=== PATIENT | male | born 1990 | race African-American/Black ===

== ENCOUNTER 2018-02-05 21:34 | Emergency (ER) | payer SELFPAY ==
[~2018-02-05] VITALS: Ht 180.3 cm; Wt 98.0 kg
[2018-02-05 21:56] VITALS: BP 118/70; PULSE 100; RESP 16; TEMP 98.4; O2SAT 98
== END 2018-02-05 23:32 | disposition left against medical advice (07) ==
LOC: NED 21:34
DX: Z53.21 Procedure and treatment not carried out due to patient leaving prior to being seen by health care provider (principal)
CPT/HCPCS: 99281

== ENCOUNTER 2018-03-11 20:44 | Emergency (ER) | payer SELFPAY ==
[~2018-03-11] VITALS: Ht 180.3 cm; Wt 100.0 kg
[2018-03-11 21:09] VITALS: BP 142/87; PULSE 86; RESP 18; TEMP 99; O2SAT 99
--- NOTE | 2018-03-11 21:59 | PD ---
HPI Chief Complaint: Abdominal Pain Time Seen by Provider: 21:58 Travel History International Travel<30 days: No Contact w/Intl Traveler<30days: No Traveled to known affect area: No History of Present Illness HPI Patient comes in complaining of diffuse crampy abdominal pain, rates it a 5 out of 10, resolves after diarrhea, also some associated nausea but without much vomiting. Patient denies any aggravating or alleviating factors. Patient denies any associated factors such as fever, rash, chest pain, headache, neck pain, flank pain. Patient also denies any dysuria hematuria or urgency. Last normal meal was a burger No known drug allergy Past medical history significant only for left hip pin placement, occasional alcohol and tobacco use PFSH Past Medical History Medical History: Denies Significant Hx Diminished Hearing: No Tetanus Vaccination: Unknown Influenza Vaccination: No Social History Alcohol Use: Yes (occasionally) Tobacco Use: Yes Substance Use: No Allergies-Medications (Allergen,Severity, Reaction): Coded Allergies: No Known Allergies (Unverified , 03/11/18) Reported Meds & Prescriptions Reported Meds & Active Scripts Active No Active Prescriptions or Reported Medications Review of Systems General / Constitutional: No: Fever Eyes: No: Visual changes HENT: No: Headaches Cardiovascular: No: Chest Pain or Discomfort Respiratory: No: Shortness of Breath Gastrointestinal: Positive: Abdominal Pain Genitourinary: No: Dysuria Musculoskeletal: No: Pain Skin: No Rash Neurologic: No: Weakness Psychiatric: No: Depression Endocrine: No: Polydipsia Hematologic/Lymphatic: No: Easy Bruising Physical Exam Narrative GENERAL: SKIN: Warm and dry. HEAD: Atraumatic. Normocephalic. EYES: Pupils equal and round. No scleral icterus. No injection or drainage. ENT: No nasal bleeding or discharge. Mucous membranes pink and moist. NECK: Trachea midline. No JVD. CARDIOVASCULAR: Regular rate and rhythm. RESPIRATORY: No accessory muscle use. Clear to auscultation. Breath sounds equal bilaterally. GASTROINTESTINAL: Abdomen soft, non-tender, nondistended. MUSCULOSKELETAL: Extremities without clubbing, cyanosis, or edema. No obvious deformities. NEUROLOGICAL: Awake and alert. No obvious cranial nerve deficits. Motor grossly within normal limits. Five out of 5 muscle strength in the arms and legs. Normal speech. PSYCHIATRIC: Appropriate mood and affect; insight and judgment normal. Data Data Last Documented VS Orders Orders NPO (03/11/18 22:06) Sodium Chloride 0.9% Flush (Ns Flush) (03/11/18 22:15) Ed Discharge Order (03/11/18 22:16) [facility] Medical Decision Making Medical Screen Exam Complete: Yes Emergency Medical Condition: Yes Medical Record Reviewed: Yes Differential Diagnosis Gastroenteritis versus small bowel obstruction versus perforation Narrative Course Patient was very evasive in his history and physical. And once he found out that he required to get some blood work for evaluation patient decided not to stay, he signed out AMA. AMA: The risks of leaving against medical advice without further evaluation treatment were discussed with the patient. These risks include cardiac dysfunction, cardiac dysrhythmia, possible heart attack, possible stroke or . The patient indicated understanding of these risks and appeared to have the capacity to make this decision. Diagnosis Primary Impression: ama Patient Instructions: Against Medical Advice (ED), General Instructions Scripts No Active Prescriptions or Reported Meds Disposition: 07 AGAINST MEDICAL ADVICE Condition: Ron Hough MD March 11, 2018 21:59
[2018-03-11] MEDS ORDERED: SODIUM CHLORIDE 0.9% FLUSH 10 ML FLUSH IV FLUSH PRN (22:15)
== END 2018-03-11 23:51 | disposition left against medical advice (07) ==
LOC: NEPE 20:44
DX: R10.9 Unspecified abdominal pain (principal)
CPT/HCPCS: 99281